=== PATIENT | female | born 1980 | race Caucasian/White ===

== ENCOUNTER 2017-03-31 20:04 | Emergency (ER) | payer BC, OTHER ==
[2017-03-31 20:15] VITALS: BP 121/85; PULSE 67; RESP 17; TEMP 98; O2SAT 100
--- NOTE | 2017-03-31 20:53 | C.PDOC ---
History Of Present Illness 36 year old female presents to the ED with complaints of right lower back pain, exacerbated by movement, for one week. Patient denies injury, trauma, incontinence, urinary symptoms, or saddle anesthesia. Time Seen by Provider: 03/31/17 20:23 Chief Complaint (Nursing): Back Pain History Per: Patient History/Exam Limitations: no limitations Onset/Duration Of Symptoms: Days (1 week ) Current Symptoms Are (Timing): Still Present Quality Of Discomfort: "Pain" Previous Symptoms: None Associated Symptoms: None Exacerbating Factor(s): Movement Recent travel outside of the [place]: No Past Medical History Reviewed: Historical Data, Nursing Documentation, Vital Signs Vital Signs: Last Vital Signs Temp 98 F 03/31/17 20:12 Pulse 67 03/31/17 20:12 Resp 17 03/31/17 20:12 BP 121/85 03/31/17 20:12 Pulse Ox 100 03/31/17 21:22 - Medical History PMH: Anxiety, Asthma Family History: States: Unknown Family Hx - Social History Hx Alcohol Use: Yes Hx Substance Use: No - Immunization History Hx Tetanus Toxoid Vaccination: No Hx Influenza Vaccination: No Hx Pneumococcal Vaccination: No Review Of Systems Constitutional: Negative for: Fever, Chills Gastrointestinal: Negative for: Nausea, Vomiting, Abdominal Pain, Diarrhea Genitourinary: Negative for: Dysuria, Incontinence, Hematuria Musculoskeletal: Positive for: Back Pain. Negative for: Neck Pain Neurological: Negative for: Weakness, Numbness Physical Exam - Physical Exam Appears: Non-toxic, No Acute Distress Skin: Warm, Dry Head: Atraumatic, Normacephalic Eye(s): bilateral: Normal Inspection, PERRL, EOMI Oral Mucosa: Moist Neck: Supple Chest: Symmetrical Cardiovascular: Rhythm Regular Respiratory: Normal Breath Sounds, No Rhonchi, No Wheezing Gastrointestinal/Abdominal: Soft, No Tenderness, No Distention Back: Normal Inspection, No CVA Tenderness, Muscle Spasm, Paraspinal Tenderness (right paralumbar tenderness ), No Straight Leg Raising Extremity: Normal ROM, No Tenderness, Other (Patient is fully ambulatory ) Neurological/Psych: Oriented x3, Normal Motor, Normal Sensation Gait: Steady ED Course And Treatment O2 Sat by Pulse Oximetry: 100 (RA) Disposition - Disposition Referrals: Shaik Cristobal MD [Primary Care Provider] - Disposition: HOME/ ROUTINE Disposition Time: 20:49 Condition: STABLE Additional Instructions: Please follow up with PMD or clinic Take meds as directed Return to ER if worse Prescriptions: Cyclobenzaprine [Cyclobenzaprine HCl] 10 mg PO HS #10 tab Ibuprofen [Motrin] 600 mg PO Q6H #30 tab Instructions: Muscle Strain (ED) Forms: [facility] ([place]ian) - Clinical Impression Clinical Impression: Low back strain - PA / SOFTWARE PROGRAMMER / Resident Statement MD/DO has reviewed & agrees with the documentation as recorded. - Scribe Statement The provider has reviewed the documentation as recorded by the Scribe Janet Balckburn All medical record entries made by the Sabine were at my direction and personally dictated by me. I have reviewed the chart and agree that the record accurately reflects my personal performance of the history, physical exam, medical decision making, and the department course for this patient. I have also personally directed, reviewed, and agree with the discharge instructions and disposition.
== END 2017-03-31 21:16 | disposition home or self-care (01) ==
LOC: SUPCPDRO 20:04 → C.ER 20:04
DX: S39.012A Strain of muscle, fascia and tendon of lower back, initial encounter (principal); X58.XXXA Exposure to other specified factors, initial encounter; Y93.89 Activity, other specified; Y92.89 Other specified places as the place of occurrence of the external cause